=== PATIENT | female | born 1980 ===

== ENCOUNTER 2017-11-03 16:04 | Emergency (ER) | payer OTHER ==
[~2017-11-03] VITALS: Ht 149.9 cm; Wt 44.5 kg
[~2017-11-03 16:04] MED LIST: CATAFLAM50 MG PO; NEURONTIN600 MG PO
== END 2017-11-03 19:10 | disposition home or self-care (01) ==
LOC: ER 16:04
DX: J11.1 Influenza due to unidentified influenza virus with other respiratory manifestations (principal); R50.9 Fever, unspecified